=== PATIENT | male | born 1950 | race Caucasian/White ===

== ENCOUNTER 2017-07-06 13:50 | Emergency (ER) | payer OTHER, BC ==
[~2017-07-06] VITALS: Ht 177.8 cm; Wt 89.1 kg
[2017-07-06 15:30] VITALS: BP 143/84
== END 2017-07-06 16:10 | disposition home or self-care (01) ==
LOC: ED 13:50
DX: S56.40 Unspecified injury of extensor muscle, fascia and tendon of other and unspecified finger at forearm level (principal); S00.81XA Abrasion of other part of head, initial encounter; R07.89 Other chest pain; W10.8XXA Fall (on) (from) other stairs and steps, initial encounter; Y93.89 Activity, other specified; Y99.8 Other external cause status; Y92.89 Other specified places as the place of occurrence of the external cause
CPT/HCPCS: J1170; J1885; Q0162

== ENCOUNTER 2017-12-21 19:59 | Emergency (ER) | payer OTHER, BC ==
[~2017-12-21] VITALS: Ht 175.3 cm; Wt 88.0 kg
[2017-12-21 20:11] VITALS: Ht 175.3 cm; Wt 88.0 kg
[2017-12-21 21:07] LABS: BASOPHIL % 0.2 % (0-2); PLATELET COUNT 184 x10^3mcL (130-400); RED CELL DISTRIBUTION WIDTH 13.9 % (11.5-14.5)
[2017-12-21 21:18] LABS: CALCIUM 8.9 mg/dL (8.5-10.1); CARBON DIOXIDE 26.9 mmol/L (21-32); CHLORIDE SERUM 101 mmol/L (98-107); CREATININE SERUM 0.8 mg/dL (0.7-1.3); GFR1 > 60 mL/min; GLUCOSE SERUM 105 mg/dL (74-106); POTASSIUM SERUM 3.8 mmol/L (3.5-5.1); SODIUM SERUM 138 mmol/L (136-145)
[2017-12-21 21:22] LABS: ALBUMIN 3.7 g/dL (3.4-5.0); ALKALINE PHOSPHATASE 71 U/L (46-116); ALT/SGPT 38 U/L (16-63); AST/SGOT 35 U/L (15-37); BILIRUBIN TOTAL 0.35 mg/dL (0.20-1.00); TOTAL PROTEIN, SERUM 7.3 g/dL (6.4-8.2)
[2017-12-21 21:26] LABS: UA SPECIFIC GRAVITY >=1.030 (1.005-1.035); microscopic required? YES; urine erythrocyte NEGATIVE (NEGATIVE)
[2017-12-21 22:13] VITALS: BP 147/81
== END 2017-12-21 22:13 | disposition home or self-care (01) ==
LOC: ED 19:59
PROVIDERS: Emergency Medicine
DX: J10.1 Influenza due to other identified influenza virus with other respiratory manifestations (principal); E78.00 Pure hypercholesterolemia, unspecified; N40.0 Benign prostatic hyperplasia without lower urinary tract symptoms
CPT/HCPCS: 83880; 87804; J1956; J2405; J7030

== ENCOUNTER 2018-01-16 06:52 | Inpatient (IN) | payer OTHER, BC ==
[~2018-01-16] VITALS: Ht 175.3 cm; Wt 86.9 kg
[2018-01-16 06:55] VITALS: Ht 175.3 cm; Wt 86.9 kg
[2018-01-16 07:32] LABS: PLATELET COUNT 220 x10^3mcL (130-400); RED CELL DISTRIBUTION WIDTH 14.2 % (11.5-14.5)
[2018-01-16 07:33] LABS: BASOPHIL % 0.4 % (0-2)
[2018-01-16 07:43] LABS: CALCIUM 8.3 mg/dL (8.5-10.1); CARBON DIOXIDE 29.1 mmol/L (21-32); CHLORIDE SERUM 106 mmol/L (98-107); CREATININE SERUM 0.8 mg/dL (0.7-1.3); GFR1 > 60 mL/min; GLUCOSE SERUM 126 mg/dL (74-106); POTASSIUM SERUM 4.2 mmol/L (3.5-5.1); SODIUM SERUM 137 mmol/L (136-145)
[2018-01-16 07:48] LABS: ALKALINE PHOSPHATASE 64 U/L (46-116); ALT/SGPT 29 U/L (16-63); AST/SGOT 24 U/L (15-37); BILIRUBIN TOTAL 0.3 mg/dL (0.20-1.00); TOTAL PROTEIN, SERUM 6.3 g/dL (6.4-8.2)
[2018-01-16 07:50] LABS: CHOLESTEROL 226 mg/dL (<200)
[2018-01-16] MEDS ORDERED: NOR10T (08:05)
[2018-01-16] MEDS ORDERED: FLOMAX0.4 MG PO (08:07)
[2018-01-16 09:25] VITALS: BP 140/62
[2018-01-16 09:49] LABS: T3 TOTAL 1.06 ng/mL
[2018-01-16 10:09] LABS: MAGNESIUM 1.9 mg/dL (1.8-2.4); PHOSPHOROUS 3.7 mg/dL (2.5-4.9)
[2018-01-16 10:13] LABS: CHOLESTEROL/HDL RATIO 2.9
[2018-01-16 10:28] LABS: FREE T4 0.95 ng/dL (0.76-1.46); FREE THYROXINE INDEX 2.3 ug/dL (1.4-4.5); T4(THYROXINE) 6.5 ug/dL (4.7-13.3)
[2018-01-16 10:29] LABS: microscopic required? NO
[2018-01-16 10:46] LABS: UA SPECIFIC GRAVITY 1.025 (1.005-1.035); urine erythrocyte NEGATIVE (NEGATIVE)
[2018-01-16 11:08] LABS: AMPHETAMINE QUAL UR NONE DETECTED (NEG <=1000)
[2018-01-16 12:53] VITALS: BP 126/63
[2018-01-16 16:05] VITALS: BP 109/56
[2018-01-16 21:14] VITALS: BP 113/65
[2018-01-17 05:16] VITALS: BP 132/70
[2018-01-17 06:15] LABS: BASOPHIL % 0.6 % (0-2); PLATELET COUNT 219 x10^3mcL (130-400)
[2018-01-17 06:19] LABS: RED CELL DISTRIBUTION WIDTH 14.8 % (11.5-14.5)
[2018-01-17 06:40] LABS: CALCIUM 8.7 mg/dL (8.5-10.1); CARBON DIOXIDE 27.1 mmol/L (21-32); CHLORIDE SERUM 106 mmol/L (98-107); CREATININE SERUM 0.6 mg/dL (0.7-1.3); GFR1 > 60 mL/min; GLUCOSE SERUM 96 mg/dL (74-106); POTASSIUM SERUM 4.1 mmol/L (3.5-5.1); SODIUM SERUM 141 mmol/L (136-145)
[2018-01-17 09:30] VITALS: BP 161/91
[2018-01-17] MEDS ORDERED: ATORVASTATIN CA40 M1 PO (09:38)
[2018-01-17] MEDS ORDERED: LEXAPRO10 MG PO (09:39)
[2018-01-17] MEDS ORDERED: LIB25 PO (09:40)
[2018-01-17] MEDS ORDERED: GOOD SENSE ASPI81 M3 PO (09:44)
== END 2018-01-17 10:30 | disposition left against medical advice (07) | DRG 74 ==
LOC: ED 06:52 → DU 08:06
PROVIDERS: Family Medicine; Specialist
DX: G90.8 Other disorders of autonomic nervous system (principal); F10.239 Alcohol dependence with withdrawal, unspecified; E44.0 Moderate protein-calorie malnutrition; J98.11 Atelectasis; N40.0 Benign prostatic hyperplasia without lower urinary tract symptoms; E11.65 Type 2 diabetes mellitus with hyperglycemia; E78.5 Hyperlipidemia, unspecified; E83.51 Hypocalcemia; Z53.29 Procedure and treatment not carried out because of patient's decision for other reasons; Z53.21 Procedure and treatment not carried out due to patient leaving prior to being seen by health care provider; Y90.9 Presence of alcohol in blood, level not specified; F41.1 Generalized anxiety disorder; F43.23 Adjustment disorder with mixed anxiety and depressed mood; F12.90 Cannabis use, unspecified, uncomplicated; Z79.899 Other long term (current) drug therapy; Z79.1 Long term (current) use of non-steroidal anti-inflammatories (NSAID); Z79.2 Long term (current) use of antibiotics; Z68.26 Body mass index [BMI] 26.0-26.9, adult
CPT/HCPCS: 36600; 82962; 83880; 84439; G0480; J0780; J7030; J7040; J8597; Q0092

== ENCOUNTER 2019-03-16 13:31 | Emergency (ER) | payer OTHER, BC ==
[~2019-03-16] VITALS: Ht 175.3 cm; Wt 89.4 kg
[~2019-03-16 13:31] MED LIST: ATORVASTATIN CA40 M1 PO; FLOMAX0.4 MG PO; GOOD SENSE ASPI81 M3 PO; LEXAPRO10 MG PO; LIB25 PO; NOR10T
[2019-03-16 13:44] VITALS: BP 158/89; Ht 175.3 cm; Wt 89.4 kg
== END 2019-03-16 15:08 | disposition home or self-care (01) ==
LOC: ED 13:31
DX: S89.91XA Unspecified injury of right lower leg, initial encounter (principal); E78.00 Pure hypercholesterolemia, unspecified; Z98.890 Other specified postprocedural states; X50.0XXA Overexertion from strenuous movement or load, initial encounter; Y93.89 Activity, other specified; Y92.89 Other specified places as the place of occurrence of the external cause; Y99.8 Other external cause status
CPT/HCPCS: J1885

== ENCOUNTER 2019-10-03 06:02 | Emergency (ER) | payer OTHER, BC ==
[~2019-10-03] VITALS: Ht 165.1 cm; Wt 89.8 kg
[2019-10-03 06:10] VITALS: Ht 165.1 cm; Wt 89.8 kg
[2019-10-03 07:13] VITALS: BP 119/51
== END 2019-10-03 07:13 | disposition home or self-care (01) ==
LOC: ED 06:02
DX: K61.1 Rectal abscess (principal); N40.0 Benign prostatic hyperplasia without lower urinary tract symptoms; E78.00 Pure hypercholesterolemia, unspecified; Z98.890 Other specified postprocedural states
CPT/HCPCS: J2001; J3490